=== PATIENT | female | born 1940 | race Caucasian/White ===

== ENCOUNTER → 2017-01-16 | Outpatient (CLI) | payer MEDICARE, OTHER ==
[~2017-01-16] MED LIST: DIOV40TA PO; MACR100C PO; PHEN-426 PO; ROSU40 PO
[2017-01-16 14:25] LABS: ANION GAP 7 MEQ/L (5-15); AST (GOT) 26 U/L (15-37); BICARBONATE 27.5 MEQ/L (21.0-32.0); BLOOD UREA NITROGEN 14 MG/DL (7-18); CHLORIDE 105 MEQ/L (98-107); GLOMERULAR FILTRATION RATE 125 ML/MIN (>89); GLUCOSE,FASTING 90 MG/DL (74-99); POTASSIUM 4.6 MEQ/L (3.5-5.1); SODIUM (NA) 139 MEQ/L (136-145)
[2017-01-16 14:31] LABS: ALKALINE PHOSPHATASE 75 U/L (45-117); ALT (GPT) 28 U/L (10-53); HDL CHOLESTEROL 59.1 MG/DL (40.0-60.0); LDL CHOLESTEROL 199 MG/DL (0-99); TOTAL BILIRUBIN ADULT 0.6 MG/DL (0.2-1.0)
== END ==
LOC: PLAB 08:15
PROVIDERS: ATTEND Family Medicine
DX: E78.2 Mixed hyperlipidemia (principal); I10 Essential (primary) hypertension
CPT/HCPCS: 36415; 80053; 80061

== ENCOUNTER → 2017-08-29 | Outpatient (CLI) | payer MEDICARE, OTHER ==
[2017-08-29 13:28] LABS: BICARBONATE 27.7 MEQ/L (21.0-32.0); CREATININE 0.55 MG/DL (0.50-1.00)
== END ==
LOC: PLAB 09:33
PROVIDERS: ATTEND Family Medicine
DX: R10.31 Right lower quadrant pain (principal); L60.3 Nail dystrophy; M79.644 Pain in right finger(s); R91.1 Solitary pulmonary nodule; K76.89 Other specified diseases of liver; E78.2 Mixed hyperlipidemia; I10 Essential (primary) hypertension; I83.11 Varicose veins of right lower extremity with inflammation; Z79.899 Other long term (current) drug therapy
CPT/HCPCS: 36415; 80048

== ENCOUNTER → 2018-01-27 | Outpatient (CLI) | payer MEDICARE, OTHER ==
[2018-01-27 10:40] LABS: ALBUMIN 3.9 GM/DL (3.4-5.0); AST (GOT) 32 U/L (15-37); BICARBONATE 29.6 MEQ/L (21.0-32.0); BLOOD UREA NITROGEN 11 MG/DL (7-18); CALCIUM 9.4 MG/DL (8.5-10.1); CHLORIDE 109 MEQ/L (98-107); CHOLESTEROL 280 MG/DL (120-200); CREATININE 0.64 MG/DL (0.50-1.00); GLOMERULAR FILTRATION RATE 90 ML/MIN (>89); SODIUM (NA) 143 MEQ/L (136-145)
[2018-01-27 10:45] LABS: ALKALINE PHOSPHATASE 79 U/L (45-117); ALT (GPT) 31 U/L (10-53); CHOLESTEROL/ HDL RATIO 4.73 RATIO; GLUCOSE,FASTING 94 MG/DL (74-99); HDL CHOLESTEROL 59.1 MG/DL (40.0-60.0); LDL CHOLESTEROL 178 MG/DL (0-99); TOTAL BILIRUBIN ADULT 0.5 MG/DL (0.2-1.0); TRIGLYCERIDES 215 MG/DL (42-150)
== END ==
LOC: PLAB 07:22
PROVIDERS: ATTEND Family Medicine
DX: R10.31 Right lower quadrant pain (principal); L60.3 Nail dystrophy; M79.644 Pain in right finger(s); R91.1 Solitary pulmonary nodule; K76.89 Other specified diseases of liver; E78.2 Mixed hyperlipidemia; I10 Essential (primary) hypertension; I83.11 Varicose veins of right lower extremity with inflammation; Z79.899 Other long term (current) drug therapy
CPT/HCPCS: 36415; 80053; 80061